=== PATIENT | male | born 1965 ===

== ENCOUNTER → 2017-09-20 | Outpatient (REF) ==
[2017-09-23 00:07] LABS: QUANTIFERON GOLD TB Negative (Negative); TB Test (QFT) Antigen 0.04 IU/mL (.); TB Test (QFT) Antigen Minus Ni 0.01 IU/mL (.); TB Test (QFT) Mitogen >10.00 IU/mL (.); TB Test (QFT) Nil 0.03 IU/mL (.)
== END ==
LOC: M LAB 07:56
DX: Z00.00 Encounter for general adult medical examination without abnormal findings (principal)